=== PATIENT | male | born 1995 | race Caucasian/White ===

== ENCOUNTER → 2019-12-06 | Outpatient (CLI) | payer BC | LOC: COL.LAB 15:11 | DX: G43.909 Migraine, unspecified, not intractable, without status migrainosus (principal); J32.9 Chronic sinusitis, unspecified; G47.00 Insomnia, unspecified; K58.9 Irritable bowel syndrome, unspecified ==

== ENCOUNTER → 2021-10-20 | Outpatient (CLI) | payer BC | LOC: COL.RAD 11:35 | DX: R59.0 Localized enlarged lymph nodes (principal) ==

== ENCOUNTER → 2022-05-06 | Outpatient (CLI) | payer BC ==
[2022-05-06] VITALS (12 sets, daily range): BP systolic 114–133; BP diastolic 77–93; PULSE 72–93; TEMP 98.2
[~2022-05-06] VITALS: Ht 175.3 cm; Wt 77.0 kg
[~2022-05-06] MED LIST: FLONASEALLERGY NS
[2022-05-06 10:05] LABS: PROTHROMBIN TIME 11.9 SECONDS (9.7-12.8)
--- NOTE | 2022-05-06 10:25 | NUR ---
Pt to ct per ambulation. Pt positioned in supine position on ct table. Monitors applied.
--- NOTE | 2022-05-06 10:50 | NUR ---
Specimens obtained by Dr Cooper and placed in formalin. Specimen labeled.
== END ==
LOC: COL.RAD 09:18
PROVIDERS: Internal Medicine Gastroenterology
DX: R94.5 Abnormal results of liver function studies (principal)